=== PATIENT | female | born 1970 | race Caucasian/White ===

== ENCOUNTER 2016-04-12 07:53 | Day surgery (SDC) | payer OTHER ==
[~2016-04-12 07:53] MED LIST: CIPROFLOXACIN HCL 500 MG TABLET PO PRN
[2016-04-12] MEDS ORDERED: LIDOCAINE HCL 10 APPL CARTRIDGE TP ONE (08:50)
[2016-04-12 09:33] VITALS: BP 111/72
== END 2016-04-12 07:54 | disposition home or self-care (01) ==
LOC: AMB 07:53
PROVIDERS: ATTEND Urology
PROC: 3E1K88X Irrigation of Genitourinary Tract using Irrigating Substance, Via Natural or Artificial Opening Endoscopic, Diagnostic (ICD-10-PCS; 2016-04-12)
PROC: 0TJB8ZZ Inspection of Bladder, Via Natural or Artificial Opening Endoscopic (ICD-10-PCS; principal; 2016-04-12 08:40)
DX: R31.29 Other microscopic hematuria (principal); Z87.891 Personal history of nicotine dependence; Z68.26 Body mass index [BMI] 26.0-26.9, adult

== ENCOUNTER 2016-06-05 16:30 | Emergency (ER) | payer OTHER ==
[2016-06-05 16:43] VITALS: BP 156/93
--- OUTSIDE RECORDS SUMMARY | 2016-06-05 17:19 | XMS REPORT | Summary of Care ---
:1970 Author Organization [facility] Address [address] [place] [address] Care Team Providers Name Role Phone Juani Fiore Primary Care Physician Unavailable Encounter Date(s): 04/05/16 - 04/05/[address] [facility], [address] [place], [place] [address] Discharge Diagnosis: Urinary urgency Discharge Disposition: Discharged to Home or Self Care Attending Physician: Jong Murray MD Referring Physician: Jong Murray MD Vital Signs Most recent to oldest [Reference Range]: 1 Temperature Temporal Artery [36.0-38.0 DegC] 37.3 DegC (04/05/16 9:23 AM) Blood Pressure [90-130/60-90 mmHg] 122/86mmHg (04/05/16 9:23 AM) Mean Arterial Pressure, Cuff 98 mmHg (04/05/16 9:23 AM) Weight Dosing 70.7 kg (04/05/16 9:23 AM) Weight Measured 70.7 kg (04/05/16 9:23 AM) Problem List No data available for this section Allergies, Adverse Reactions, Alerts Substance Reaction Severity Status Cymbalta vomiting Active Medications Lyrica 225 mg oral capsule 0 Refill(s), Start Date: 03/08/16 12:17:00 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 Start Date: 03/08/16 Status: Orderedoxybutynin 5 mg/24 hours oral tablet, extended release 1 tab(s), Oral, Daily, # 30 tab(s), 11 Refill(s), Start Date: 03/08/16 16:40:00 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, 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: [facility] Start Date: 03/08/16 Status: Ordered Results Patient Viewable Results Most recent to oldest [Reference Range]: 1 Urine Appearance Urine Dipstick Clear (04/05/16 9:42 AM) Urine Color Urine Dipstick Yellow (04/05/16 9:42 AM) Specific [place] Urine Dipstick 1.005 (04/05/16 9:42 AM) Bilirubin Urine Dipstick Negative (04/05/16 9:42 AM) pH Urine Dipstick 6 (04/05/16 9:42 AM) Urobilinogen Urine Dipstick 0.2 mg/dl (04/05/16 9:42 AM) Blood Urine Dipstick Large (04/05/16 9:42 AM) Glucose Urine Dipstick Negative (04/05/16 9:42 AM) Ketones Urine Dipstick Negative (04/05/16 9:42 AM) Protein Urine Dipstick Negative (04/05/16 9:42 AM) Nitrite Urine Dipstick Negative (04/05/16 9:42 AM) Leukocytes Urine Dipstick Negative (04/05/16 9:42 AM) Immunizations No data available for this section Procedures Procedure Date Related Diagnosis Body Site Cholecystectomy 2001 Dissection tonsillectomy 03/17/83 Social History No data available for this section Assessment and Plan No data available for this section
--- OUTSIDE RECORDS SUMMARY | 2016-06-05 17:19 | XMS REPORT | Summary of Care ---
:1970 Author Organization [facility] Address [address] [place] [id number] Care Team Providers Name Role Phone Juani Fiore Primary Care Physician Unavailable Encounter Date(s): 04/05/16 - 04/05/[address] [address] Discharge Disposition: 01 Discharged to Home or Self Care Attending Physician: Jong Murray MD Admitting Physician: Jong Murray MD Vital Signs No data available for this section Problem List No data available for this section Allergies, Adverse Reactions, Alerts Substance Reaction Severity Status Cymbalta vomiting Active Medications Lyrica 225 mg oral capsule 0 Refill(s), Start Date: 03/08/16 12:17:00 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 Start Date: 03/08/16 Status: Orderedoxybutynin 5 mg/24 hours oral tablet, extended release 1 tab(s), Oral, Daily, # 30 tab(s), 11 Refill(s), Start Date: 03/08/16 16:40:00 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, 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: [facility] Start Date: 03/08/16 Status: Ordered Results Patient Viewable Results Most recent to oldest [Reference Range]: 1 UA Color Yellow *NA* (04/05/16 9:43 AM) Urine Clarity Clear *NA* (04/05/16 9:43 AM) Specific [place] [1.000-1.060] 1.006 (04/05/16 9:43 AM) Urine pH [5-8] 6 (04/05/16 9:43 AM) Ketones Negative (04/05/16 9:43 AM) Bilirubin [Negative] Negative (04/05/16 9:43 AM) Urine Protein [Negative] Negative (04/05/16 9:43 AM) Glucose [Negative] Negative (04/05/16 9:43 AM) Urine HGB [Negative] 2+ *ABN* (04/05/16 9:43 AM) Urobilinogen <2.0 *NA* (04/05/16 9:43 AM) Nitrite [Negative] Negative (04/05/16 9:43 AM) Leuk Esterase [Negative] Negative (04/05/16 9:43 AM) UA Ascorbic Acid [Negative] Negative (04/05/16 9:43 AM) Urine WBC [0-5] 0-5 (04/05/16 9:43 AM) Urine RBC [0-2] 0-2 (04/05/16 9:43 AM) Squamous Epi [0-5] 0-5 (04/05/16 9:43 AM) Immunizations No data available for this section Procedures Procedure Date Related Diagnosis Body Site Cholecystectomy 2001 Dissection tonsillectomy 03/17/83 Social History No data available for this section Assessment and Plan No data available for this section
--- OUTSIDE RECORDS SUMMARY | 2016-06-05 17:19 | XMS REPORT | Continuity of Care Document ---
:1970 Author Organization [facility] ([facility]) Address [address] [place] [address] Phone [phone] Care Team Providers Name Role Phone Rashad Menjivar Primary Care Provider [phone] Source Comments This disclosure is being made pursuant to the Care Everywhere program, applicable federal and state laws, and may not contain all informaitonavailable regarding this patient.[facility] ([facility]) Active Allergies and Adverse Reactions No Known Allergies Current Medications Prescription Sig. Disp. Refills Start Date End Date Status zolpiDEM 10 mg tablet Take 10 mg by mouth at Active bedtime as needed. cyclobenzaprine Take 10 mg by mouth 3 Active (FLEXERIL) 10 mg times daily as needed. tablet esomeprazole (NEXIUM) Take 40 mg by mouth 2 Active 40 mg EC capsule times daily. oxyCODONE-acetaminophe Take 1 Tab by mouth Active n (PERCOCET) 5-325 mg every 4 hours as per tablet needed. levonorgestrel-ethinyl Take 1 Tab by mouth Active estradiol (SEASONALE) daily. 0.15-0.03 mg per tablet Sennosides (SENNA) 8.6 Take 2 Caps by mouth Active mg Cap daily. cyanocobalamin inject 1,000 mcg Active (VITAMIN B-12) 1000 intramuscularly every mcg/mL injection month. traMADol 50 mg tablet Take 50 mg by mouth 4 Active times daily as needed. minocycline 100 mg Take 100 mg by mouth 2 Active capsule times daily. fluconazole 200 mg Take 200 mg by mouth Active tablet daily. Active Problems Problem Noted Date [place] esophagus 04/26/2011 Herpes zoster, reported 04/26/2011 Cyst of cervix, reported 04/26/2011 Cyst of kidney, reported 04/26/2011 Fibromyalgia 04/25/2011 Irritable bowel syndrome 04/25/2011 Migraines 04/25/2011 History of anemia 04/25/2011 Hx gestational diabetes 04/25/2011 Depression 04/25/2011 Lumbago 12/13/2003 Most Recent Encounters Date Type Specialty Providers Description 05/01/2016 Lab Requisition [facility]ology [facility], [facility] Dx: Melanocytic nevi of right lower limb, including hip Social History Tobacco Use Types Packs/Day Years Used Date Former Smoker Quit: 03/17/2000 Smokeless Tobacco: Never Used Alcohol Use Drinks/Week oz/Week Comments No None since December 2010 Last Filed Vital Signs Vital Sign Reading Time Taken Blood Pressure 149/81 04/25/2011 1:03 PM POWDER NIPPER Pulse 100 04/25/2011 1:03 PM POWDER NIPPER Temperature 37 C (98.6 F) 04/25/2011 1:03 PM POWDER NIPPER Respiratory Rate - - Height 1.626 m (5' 4") 04/25/2011 1:03 PM POWDER NIPPER Weight 64.592 kg (142 lb 6.4 oz) 04/25/2011 1:03 PM POWDER NIPPER Body Mass Index 24.43 04/25/2011 1:03 PM POWDER NIPPER Oxygen Saturation - - Plan of Care Health Maintenance Due Date Last Done Comments Hepatitis B Vaccine (1 of 3 - Primary Series) 1970 Tdap Vaccine 02/02/1983 Lipid Disorder Screening 02/02/1990 MMR Vaccine 02/02/1990 Td Vaccine 02/02/1990 Cervical Cancer Screening 02/02/2002 Mammogram 2012 Influenza Vaccine: Seasonal (#1) 10/16/2015 Results from Last 3 Months DERMATOPATHOLOGY EXAM (04/29/2016 9:00 AM) Component Value Range Case Report Surgical Pathology Case: [id number] Authorizing Provider:[facility], [facility] Collected: 04/29/2016 09:00 AM Pathologist: Roni Mejia MD Received: 05/01/2016 11:05 AM Specimen:Skin, other, specify, R popliteal skin Diagnosis Skin, right popliteal, shave biopsy: Dermal nevus, traumatized. I have personally reviewed this case and edited the report as necessary. Clinical Information Tissue source/site: [id number] popliteal skin. Pertinent clinical history and findings: 0.5 cm re-pigmented irregular brown papule. Clinical differential diagnosis: Atypical nevus. Gross Description A.Received in formalin, in a container labeled Agata El, date of , and "R popliteal skin", is a 0.8 x 0.7 x 0.1 cm dark brown-villalta shave biopsy.The specimen is inked, quartered and submitted entirely in A1. BNS/tkr Microscopic Description Sections show a dermal proliferation of cytologically bland nevomelanocytes that are organized into nests.The melanocytes demonstrate maturation with descent.There is overlying scar.Lesionis transected. Performed by: Marya Croft M.D., R4 Specimen Skin - Skin, other, specify
== END 2016-06-05 17:11 | disposition left against medical advice (07) ==
LOC: ER 16:30
DX: Z53.21 Procedure and treatment not carried out due to patient leaving prior to being seen by health care provider (principal)